=== PATIENT | male | born 1970 | race Caucasian/White ===

== ENCOUNTER 2021-11-29 01:08 | Outpatient (CLI) | payer OTHER, SELFPAY ==
--- NOTE | 2021-11-29 | DI.RAD_ITS ---
Exam(s) XR LUMBAR SPINE COMPLETE EXAM: XR LUMBAR SPINE COMPLETE CLINICAL HISTORY: S/P L5-S1 FUSION. TECHNIQUE: 2D digital imaging was performed of the lumbar spine. Five images were obtained. AP, la teral, right oblique, left oblique and L5-S1 spot views were obtained. COMPARISON: No exams were available for comparison FINDINGS: BONES: No fracture or destructive lesion. Vertebral bodies are unremarkable. No facet hypertrophy soham ntified. Endplate osteophytes are seen at multiple levels of the lumbar spine. DISKS: Intervertebral disc spaces are maintained. There are postsurgical changes at L5-S1. ALIGNMENT: Lumbar spinal alignment is within normal limits. No spondylolysis or spondylolisthesis. SOFT TISSUE: Normal. IMPRESSION: 1. Mild degenerative changes in the lumbar spine. 2. Postsurgical changes at L5-S1. DATA REPOSITORY: RADIATION DOSE DELIVERED:
== END 2021-11-29 01:28 ==
DX: Z98.1 Arthrodesis status (principal); M51.36 Other intervertebral disc degeneration, lumbar region
CPT/HCPCS: 72110

== ENCOUNTER 2022-03-07 02:22 | Outpatient (CLI) | payer OTHER, SELFPAY | END 2022-03-07 02:23 | disposition home or self-care (01) | LOC: LBO 02:22 | PROVIDERS: PCP Nurse Practitioner; Visit Provider Nurse Practitioner ==

== ENCOUNTER → 2022-04-11 01:29 | Outpatient (CLI) | payer OTHER, SELFPAY ==
--- NOTE | 2022-04-11 | DI.MRI_ITS ---
Exam(s) MR LUMBAR SPINE WO EXAM: MR LUMBAR SPINE WO CLINICAL HISTORY: H/O L5-S1 FUSION 08/08/21, M54.50, M54,16, M54.31. TECHNIQUE: Multiplanar multisequence MRI of the Lumbar spine was performed. COMPARISON: CR XR LUMBAR SPINE COMPLETE from 11/29/2021 CR XR LUMBAR SPINE COMPLETE from 04/11/2022 FINDINGS: The examination is limited due to patient motion artifact. Bones: The last intervertebral disc space is designated the L5/S1 level for the numbering purpose of this examination. The vertebral body heights are well maintained. Alignment is satisfactory. The si gnal characteristics are unremarkable. Postsurgical changes at L5-S1. Cord: The conus tip ends at the T12 level. It is of normal size and signal intensity. T12-L1: No disc herniations or bulges are present. No central spinal canal or neural foraminal stenos is. L1-2: No disc herniations or bulges are present. No central spinal canal or neural foraminal stenosis . L2-3: No disc herniations or bulges are present. No central spinal canal or neural foraminal stenosis . L3-4: There is a diffuse disc bulge. Degenerative changes of the facets are present. The findings r esult in moderate central spinal canal stenosis. Moderately severe bilateral neural foraminal stenos is is present. L4-5: There is a diffuse disc bulge. Degenerative changes of the facets are present. This causes mo derately severe central spinal canal stenosis. There is marked bilateral neural foraminal stenosis. L5-S1: No disc herniations or bulges are present. No central spinal canal or neural foraminal stenosi s.There is limited visualization of the right neural foramen due to hardware artifact. Soft tissues: The visualized SI joints and sacrum are well maintained. There is mild fatty atrophy of the right paraspinous muscles posterior to the lower lumbar and sacrum. IMPRESSION: 1. Postsurgical changes at L5-S1. 2. Diffuse disc bulge and degenerative changes at L4-L5 which causes moderately severe central spinal canal stenosis and marked bilateral neural foraminal stenosis. 3. Degenerative changes at L3-L4 resulting in moderate central spinal canal and moderately severe abebe ateral neural foraminal stenosis. DATA REPOSITORY:
--- NOTE | 2022-04-11 09:00 | DI.RAD_ITS ---
Exam(s) XR LUMBAR SPINE COMPLETE EXAM: XR LUMBAR SPINE COMPLETE CLINICAL HISTORY: LBP, H/O L5-S1 FUSION ON 08/08/21. TECHNIQUE: 2D digital imaging was performed of the lumbar spine. Five images were obtained. AP, la teral, flexion and extension views were obtained. COMPARISON: CR XR LUMBAR SPINE COMPLETE from 11/29/2021 FINDINGS: BONES: No fracture or destructive lesion. There are endplate osteophytes at all levels of the lumbar spine. No facet hypertrophy identified. Postsurgical changes are seen at L5-S1. DISKS: There is disc space narrowing at L4-L5. ALIGNMENT: Lumbar spinal alignment is within normal limits. No significant subluxations are seen wit h flexion or extension. No spondylolysis or spondylolisthesis. SOFT TISSUE: Normal. IMPRESSION: Degenerative and postsurgical changes in the lumbar spine. DATA REPOSITORY: RADIATION DOSE DELIVERED:
== END ==
PROVIDERS: PCP Nurse Practitioner; Visit Provider Orthopaedic Surgery Orthopaedic Surgery of the Spine
DX: M54.59 Other low back pain (principal); M51.36 Other intervertebral disc degeneration, lumbar region; Z98.1 Arthrodesis status; M48.061 Spinal stenosis, lumbar region without neurogenic claudication
CPT/HCPCS: 72110; 72148

== ENCOUNTER 2022-05-15 10:43 | Outpatient (REF) | payer OTHER, SELFPAY ==
[2022-05-15 10:53] LABS: Source Nasal/Nares
[2022-05-15 21:47] LABS: COVID-19 PCR Negative (Negative)
== END 2022-05-15 10:44 | disposition home or self-care (01) ==
LOC: LBN 10:43
PROVIDERS: PCP Nurse Practitioner; Visit Provider Nurse Practitioner
DX: Z20.822 Contact with and (suspected) exposure to COVID-19 (principal); Z01.818 Encounter for other preprocedural examination
CPT/HCPCS: 87635

== ENCOUNTER 2022-10-27 13:24 | Outpatient (REF) | payer OTHER, SELFPAY ==
[2022-10-27 20:53] LABS: Abs Immature Grans 0.01 10^3/uL (0.0-0.06); Absolute Basophil Count 0.04 10^3/uL (0.0-0.2); Absolute Eosinophil Count 0.14 10^3/uL (0.0-0.7); Absolute Lymphocyte Count 1.13 10^3/uL (1.2-3.4); Absolute Monocyte Count 0.46 10^3/uL (0.1-0.8); Absolute Neutrophil Count 2.32 10^3/uL (1.2-6.7); Eosinophils % 3.4; HCT 40.4 % (40.0-50.0); HGB 13.6 g/dL (13.5-17.5); Immature Grans % 0.2; Lymphocytes % 27.6; MCH 31.6 pg (27.0-33.0); MCHC 33.7 % (32.0-36.0); MCV 94 fL (80-95); MPV 10.9 fL (8.0-11.0); Monocytes % 11.2; Neutrophils % 56.6; Platelet Count 211 10^3/uL (130-400); RDW 13.1 % (11.8-14.1); RDW-SD 44.4 fL
[2022-10-27 21:05] LABS: ALT 42 U/L (16-63); AST 36 U/L (15-37); Alkaline Phosphatase 75 U/L (46-116); Anion Gap 5.7 mmol/L (3-11); BUN 13 mg/dL (7-18); CO2 30.3 mmol/L (21.0-32.0); CREATININE 0.9 mg/dL (0.70-1.30); Calcium 9.4 mg/dL (8.5-10.1); Calculated LDL 87 mg/dL (<100); Chloride 104 mmol/L (98-107); Cholesterol 176 mg/dL (<200); Estimated GFR 104.05 (mL/min/1.73m2); Glucose 87 mg/dL (74-106); HDL Cholesterol 81 mg/dL (40-60); Potassium 4.5 mmol/L (3.5-5.1); Sodium 140 mmol/L (136-145); TSH (W/Ref FT4) 1.71 uIU/mL (0.36-3.74); Total Protein 7.3 g/dL (6.4-8.2); Triglyceride 41 mg/dL (<150)
[2022-10-27 21:21] LABS: Hemoglobin A1C 5.2 % (<5.7)
== END 2022-10-27 13:25 | disposition home or self-care (01) ==
LOC: LBN 13:24
PROVIDERS: PCP Nurse Practitioner Family; Visit Provider Nurse Practitioner Family
DX: Z00.00 Encounter for general adult medical examination without abnormal findings (principal)
CPT/HCPCS: 80053; 80061; 83036; 84443; 85025

== ENCOUNTER 2022-11-18 14:41 | Outpatient (CLI) | payer OTHER, SELFPAY ==
--- NOTE | 2022-11-18 14:30 | DI.RAD_ITS ---
Exam(s) XR KNEE LT 4V AP,LAT,RIMMA,PAT EXAM: XR KNEE LT 4V AP,LAT,RIMMA,PAT CLINICAL HISTORY: left knee pain. TECHNIQUE: 2D digital imaging was performed. COMPARISON: No exams were available for comparison FINDINGS: Four views: There is the medial hemiarthroplasty as well as evidence of prior ACL surgery. Components of the med ial hemiarthroplasty appear to be in satisfactory position alignment with no fracture or loosening. There are minimal degenerative changes. The height of the lateral compartment is maintained. Howeve r, there are at least 2 intra-articular calcified bodies as seen on the frontal and tunnel view. 1 o f these is located laterally measuring 6 x 3 millimeters and the other measures approximately 5 x 5 m illimeters. These appear to be located in the lateral compartment and intercondylar notch, respectiv crystal. IMPRESSION: Previous ACL surgery and medial hemiarthroplasty. Loose intra-articular bodies as described above. Joint effusion noted. DATA REPOSITORY: RADIATION DOSE DELIVERED:
== END 2022-11-18 14:42 | disposition home or self-care (01) ==
LOC: DIORS 14:42
PROVIDERS: PCP Nurse Practitioner Family; Referring Provider Nurse Practitioner Family; Visit Provider Student in an Organized Health Care Education/Training Program
DX: M25.562 Pain in left knee (principal); M23.42 Loose body in knee, left knee
CPT/HCPCS: 73564

== ENCOUNTER 2022-11-19 10:52 | Day surgery (SDC) | payer OTHER, SELFPAY ==
[2022-11-19] VITALS (9 sets, daily range): BP systolic 130–155; BP diastolic 82–89; PULSE 34–44; RESP 11–20; TEMP 36.3–36.7; O2SAT 99–100; BMI 27.1
--- NOTE | 2022-11-19 11:26 | W.ANESPRE ---
General Info Date of Service Date Performed: 11/19/22 Height: 5 ft 9 in Weight: 83.5 kg Body Mass Index (BMI): 27.1 Surgical Procedure: Operation Date: 11/19/22 12:55 Proposed Procedure Side Surgeon p Arthroscopic removal of loose body Left knee Left Archie Osborne MD Meds Allergies and Home Medications Allergies Allergy/AdvReac Type Severity Reaction Status Date / Time No Known Allergies Allergy Verified 11/18/22 14:35 Home Medication Medication Instructions Recorded sildenafil 50 mg tablet (Viagra) 50 mg PO DAILY PRN sexual activity 08/18/22 #15 tabs dextroamphetamine-amphetamine 10 10 mg PO BID #56 tabs 10/27/22 mg tablet (Adderall) Current Visit Medications: Current Medications Generic Name Dose Route Start Last Admin Trade Name Freq PRN Reason Stop Dose Admin Acetaminophen 1,000 mg 11/19/22 06:00 Acetaminophen 500 Mg Tab PO PREOP SHELBY Celecoxib 400 mg 11/19/22 06:00 Celecoxib 200 Mg Cap PO PREOP SHELBY PFSH Active Problems Active Problems: Problem Status Onset Code Loose body of left knee M23.42 Erectile dysfunction N52.9 Low back pain with right-sided sciatica M54.41 Adjustment disorder F43.20 Insomnia G47.00 ADD (attention deficit disorder) F98.8 Medical History Medical History Biceps tendonitis 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 Fracture of L4 vertebra Fracture of left ankle Fracture, scapula Hepatomegaly Infraspinatus tendonitis Intervertebral disc protrusion L2-L3, L3-L4, L4-L5, L5-S1 Iron deficiency anemia Low back pain s/p lumbar fusion L5 S1 July 2021 Osteoarthritis of left knee SLAP shoulder tear prominent labral w/ paralabral cyst Supraspinatus tendinitis Wear of cartilage of joint due to hemiarthroplasty Medical History Comments:: alfredo for sleep aide; t-3; avg 2x week Surgical History Surgical History H/O angioplasty coronary artery History of surgical removal of meniscus of knee repaired S/P ACL repair 2010 S/P anterior cruciate ligament surgery S/P left knee surgery osteochondral implants, CLARENCE left partial medial knee replacement S/P rotator cuff repair 2013 Status post labral repair of shoulder Tobacco Smoking/Tobacco Use Status: Former Tobacco Use Second hand exposure: Yes Alcohol Alcohol Intake: current Alcohol intake frequency: a few times a week Alcohol type: beer Substance Use Substance use: Never Substance use type: does not use Details: t-3; avg 2x week Vital Signs and Lab Results Vital Signs Most Recent Vital Signs in EMR: Most Recent Vital Signs Temp Pulse Resp BP Pulse Ox 36.7 C 44 L 20 131/87 99 11/19/22 11:04 11/19/22 11:04 11/19/22 11:04 11/19/22 11:04 11/19/22 11:04 Lab Results Blood Type / Crossmatch: No Data to Display Complete Blood Count: White Blood Count 4.10 10^3/uL (4.4-10.8) L 10/27/22 20:30 Red Blood Count 4.30 10^6/uL (4.36-5.78) L 10/27/22 20:30 Hemoglobin 13.6 g/dL (13.5-17.5) 10/27/22 20:30 Hematocrit 40.4 % (40.0-50.0) 10/27/22 20:30 Platelet Count 211 10^3/uL (130-400) 10/27/22 20:30 Complete Metabolic Panel: Sodium 140 mmol/L (136-145) 10/27/22 20:30 Potassium 4.5 mmol/L (3.5-5.1) 10/27/22 20:30 Chloride 104 mmol/L (98-107) 10/27/22 20:30 Carbon Dioxide 30.3 mmol/L (21.0-32.0) 10/27/22 20:30 BUN 13 mg/dL (7-18) 10/27/22 20:30 Creatinine 0.9 mg/dL (0.70-1.30) 10/27/22 20:30 Est GFR (CKD-EPI 2020) 104.05 (mL/min/1.73m2) 10/27/22 20:30 Calcium 9.4 mg/dL (8.5-10.1) 10/27/22 20:30 Albumin 4.0 g/dL (3.4-5.0) 10/27/22 20:30 Glucose 87 mg/dL (74-106) 10/27/22 20:30 Hemoglobin A1c 5.2 % (<5.7) 10/27/22 20:30 Liver Function Panel: Alanine Aminotransferase (ALT/SGPT) 42 U/L (16-63) 10/27/22 20:30 Aspartate Amino Transf (AST/SGOT) 36 U/L (15-37) 10/27/22 20:30 Coagulation Panel: No Data to Display Cardiac Panel: No Data to Display Arterial Blood Gas: No Data to Display Venous Blood Gas: No Data to Display Pancreas Panel: No Data to Display Thyroid Panel: Thyroid Stimulating Hormone (TSH) 1.71 uIU/mL (0.36-3.74) 10/27/22 20:30 Infectious Disease: No Data to Display Blood Cultures: No Data to Display Toxicology Panel: No Data to Display Anesthesia Assessment and Plan Anesthesia History Personal History: No History of Anesthesia Complications Family History: No Family History of Anesthesia Complications Exercise Tolerance Exercise Tolerance: Metabolic Equivalents>4 Pertinent Negatives Pertinent Negatives: No Symptoms of GERD, No Major Cardiovascular Symptoms or Complaints and No Major Pulmonary Symptoms or Complaints Cardiac & Pulmonary Exam Cardiac Exam: Normal S1/S2 Heart Sounds Pulmonary Exam: Clear Bilateral Breath Sounds Implantable Cardiac Device Does patient have a Pacemaker or an ICD?: No Airway Exam Known Difficult Airway: No Mallampati Class: 1 Mouth Opening: Normal (> 3cm) Thyromental Distance: Greater than 3 cm Facial Hair: Full Melo Neck Range of Motion: Full ROM Neck Circumference: Normal Teeth Condition: Normal Dentition ASA Classification ASA Score: ASA 2 Emergency Case?: No NPO Status NPO Status: NPO Clears >2 hours, Solids >8 hours Anesthesia Plan Resuscitation Status: Full Code Anesthesia Technique: General Anesthesia Airway Planned: LMA Monitors Used: Standard Monitors
[2022-11-19] MEDS: Acetaminophen 500 MG TAB 1000 MG PO (11:35)
[2022-11-19] MEDS: Celecoxib 200 MG CAP 400 MG PO (11:35)
[2022-11-19] MEDS: Lactated Ringers 1,000 ML 80 ML IV (11:41)
[2022-11-19] MEDS: ceFAZolin 2 GM/50 ML BAG IVPB (12:32)
--- NOTE | 2022-11-19 13:04 | W.PM.DSUDISC ---
Date of service: 11/19/22 Time of Service: 13:04 Discharge Plan Disposition Patient Disposition: Home Condition: Good Discharge Details Attending Provider: Archie Osborne Primary Care Provider: Rajni Méndez Home Meds and New Rx's Prescriptions: New acetaminophen 500 mg tablet 1,000 mg PO TID Qty: 90 0RF hydrocodone-acetaminophen 5-325 mg tablet 1 tab PO Q6H PRN (Reason: pain) Qty: 6 0RF ibuprofen 600 mg tablet 600 mg PO TID PRN (Reason: pain) Qty: 90 0RF Continued dextroamphetamine-amphetamine [Adderall] 10 mg tablet 10 mg PO BID MDD 20 Qty: 56 0RF sildenafil [Viagra] 50 mg tablet 50 mg PO DAILY PRN (Reason: sexual activity) Qty: 15 2RF Rx Instructions: administer 30 minutes to 4 hours before activity Discharge Instructions Stand Alone Forms: Dylon Knee Arthroscopy Equipment/Supplies: Partial Weight Bearing Crutches Activity:: Activity as Tolerated Remove Dressings/Wound Care:: 72 hours Shower/Bathe:: 72 hours Diet:: As Tolerated Discharge Orders Discharge Orders: Discharge Order (Routine); Ordered 11/19/22 Ordered By: Ayush Cedillo
[2022-11-19] MEDS: Bupivacaine 0.5% Pres-Free 30 ML VIAL (13:44)
[2022-11-19] MEDS: fentaNYL 100 MCG/2 ML VIAL IVP (14:25)
--- NOTE | 2022-11-19 15:01 | W.ANESPOSTOP ---
Postoperative Evaluation Date, Time and Location Date Performed: 11/19/22 Time Performed: 15:01 Patient Location: PACU Vital Signs Most Recent Imported Vital Signs: Most Recent Vital Signs Temp Pulse Resp BP Pulse Ox 36.6 C 34 L 11 L 133/82 100 11/19/22 14:40 11/19/22 14:40 11/19/22 14:40 11/19/22 14:40 11/19/22 14:40 Pain Score Most Recent Pain Score: Most Recent Pain Score Pain Level 3 11/19/22 14:40 Assessment Mental Status: Awake (Alert & Oriented to Patient Baseline) Airway and Respiratory Function: Patent airway with normal (patient baseline) respiratory exam Cardiovascular Function: Hemodynamically Stable Hydration Status: Adequately Hydrated Nausea & Vomiting: No Nausea or Vomiting Pain: Pain is tolerable per patient Peripheral Nerve Block: Patient did not receive a nerve block
--- NOTE | 2022-11-19 16:31 | W.PM.OP ---
Date of service: 11/19/22 Time of Service: 13:45 Operative Note Operative Note DATE OF PROCEDURE: 11/19/22 PRE-OP DIAGNOSIS: Left Knee Synovitis and Loose Bodies POST-OP DIAGNOSIS: same PROCEDURE: Arthroscopic Synovectomy and Removal of Loose Body - Left Knee SURGEON: Archie Osborne ANESTHESIA TYPE: General LMA/ETT Refer to Anesthesia Record ESTIMATED BLOOD LOSS: 0 PATHOLOGY: none sent COMPLICATIONS: None Patient was transported to: PACU Patient's condition: stable Indications: I have seen Jan in clinic for symptoms of a loose body with some synovitis. This was confirmed based on x-ray and exam findings. Nonoperative measures were exhausted but disability and pain persisted. I discussed knee arthroscopy with the patient. I reviewed the risks of the procedure to include, but not limited to, bleeding, infection, pain, stiffness, damage to nerves or vessels, recurrence, blood clot. Despite these risks, the patient elected to proceed. Findings: A diagnostic arthroscopy was performed with the following findings: Suprapatellar Pouch: Moderate inflammatory and chronic synovitis, No loose bodies Medial Compartment: Intact unicompartmental arthroplasty without signs of loosening, , No loose bodies Notch: ACL and PCL were intact, rounded loose body adjacent to the PCL and ACL Lateral Compartment: Partial, complex tearing of the root, Focal areas of Grade III chondromalacia with large fissures, 3 small fragments identified in the posterior aspect of the knee Patellofemoral Compartment: Grade II/III chondromalacia and some areas of Grade IV chondromalacia of the trochlea, No apparent patellar maltracking Procedure Description: Jan was greeted in the preoperative holding area where the correct side was identified and marked. The consent was reviewed with the patient and signed. The history and physical was updated. All questions were answered. Jan was taken back to the operating room. The patient was placed into the supine position on the operating room table. All bony prominences were well padded. Prophylactic antibiotics in the form of Cefazolin were administered. The left leg was then prepped with Chloraprep and draped in a standard fashion with stockinette and extremity drape. A timeout to confirm correct identity, side and site, procedure, allergies, anesthesia, and medical concerns was performed. The leg was placed into a pneumatic leg tabor, [id number]. A standard lateral portal was made at the lateral border of the patella tendon in line with the inferior pole of the patella, soft spot. The skin and deep tissue was incised sharply and the blunt trochar was inserted atraumatically. A diagnostic arthroscopy was performed and the findings are listed above. The suprapatellar pouch had chronic synovitis and some inflammatory changes. The patellofemoral articulation showed Grade II/III chondromalacia of the distal and lateral aspect of the patella. There was good tracking. The trochlea had exposed bone centrally, Grade IV chondromalacia. The lateral gutter had no loose bodies and the medial gutter had no loose bodies. The knee was brought into some valgus stress in extension to open the medial compartment. A medial portal was made, localized by a spinal needle. The portal was created with an #11 blade through skin and capsule under direct visualization avoiding any meniscal injury. A probe was then inserted into the medial compartment. There was a unicompartmental arthroplasty in position. There is no sign of loosening. There was some overgrowth of the bone surrounding the medial aspect of the medial femoral component. There was some chronic synovitis and scarring around this component but nothing which was impinging. The notch was then inspected which showed an intact ACL and an intact PCL. A rounded loose body was seen loosely attached to the PCL interposed between the ACL and the PCL. Using a pituitary rongeur this was removed. The leg was then brought into a figure of 4 position. The lateral compartment was fully inspected with the arthroscope and a probe. The chondral surface of the lateral femur showed area of grade I chondromalacia with some slight fissuring resulting in some grade 3. The chondral surface of the lateral tibia showed some areas of fissuring representing grade III chondromalacia although overall cartilage was intact. The lateral meniscus had some fraying with a small displaced fragment at the level of the root posteriorly. After evaluation, the meniscus was debrided down to a stable base using a series of biters and arthroscopic tenisha. It was probed afterwards to confirm that the tear had been removed and the meniscus was stable. There is no loose body identified within the lateral compartment as expected. Therefore I took the scope into the medial portal and advanced it through the notch between the wall of the lateral femur and the ACL. This allowed me to inspect the posterior compartment of the knee. In the posterior compartment there were 3 loose bodies which appear to be cartilaginous in nature. On the scope and advancing the shaver I was able to visualize removal of these loose bodies through the shaver itself. I then made a superior portal in the superolateral aspect of the knee. I then used a shaver to clear out the lateral gutter which had significant amount of synovitis and inflammation. This abundant amount of synovitis was seen between the patella and in the lateral soft tissues. This was debrided down until the bulk was removed. I also advanced the camera into the popliteal hiatus, looking for any loose bodies. None were found in this area. The arthroscope was brought back into the suprapatellar pouch and the leg was in full extension. The knee was thoroughly irrigated with the arthroscopic fluid on high flow and pressure. Once again, no other loose bodies were identified. Prior to completing the case I then moved the scope back into the anterior aspect of the knee focusing on the anterior lateral aspect but once again saw no other loose bodies. Inflow was stopped and excess fluid was removed. The wounds were closed with 4-0 Nylon. They were dressed with Xeroform, 4x4 gauze, ABD pad, Kerlix and an RED wrap. A cryo-cuff was applied. The patient tolerated the procedure well and was returned to the Same Day Surgery area in a stable condition suffering no known complication.
== END 2022-11-19 16:05 | disposition home or self-care (01) ==
PROVIDERS: PCP Nurse Practitioner Family; Visit Provider Student in an Organized Health Care Education/Training Program
PROC: (CPT 29870; principal; 2022-11-19 12:45)
DX: M65.862 Other synovitis and tenosynovitis, left lower leg (principal); M94.262 Chondromalacia, left knee; M23.262 Derangement of other lateral meniscus due to old tear or injury, left knee; M23.42 Loose body in knee, left knee
CPT/HCPCS: 29876; 29881; J0690; J1100; J1885; J2250; J2405; J2704; J3010

== ENCOUNTER → 2023-07-24 00:52 | Outpatient (CLI) | payer OTHER, SELFPAY ==
--- NOTE | 2023-07-24 | DI.MRI_ITS ---
Exam(s) MR LUMBAR SPINE WO EXAM: MR LUMBAR SPINE WO CLINICAL HISTORY: LOW BACK PAIN, M54.50, S/P LUMBAR FUSION, Z98.1, LUMBAR SPONDYLOSIS, M47.81 TECHNIQUE: Multiplanar multisequence MRI of the Lumbar Spine was performed. CONTRAST MATERIAL: IV Contrast: mL of Dotarem contrast administered. COMPARISON: MR MR LUMBAR SPINE WO from 04/11/2022 FINDINGS: No recent post surgical plain films are available. Metallic posterior fusion hardware is now seen from L4 through S1. There is significant artifact at these levels. No significant central canal stenosis. Neural foramen difficult to evaluate due to me tallic artifact. Mild central canal stenosis at L 3 4 secondary to disc bulging and ligamentous hypertrophy. Severe bilateral neural foraminal narrowing present. Mild disc bulging and facet degenerative changes well as ligamentous hypertrophy noted at L2-3. Ther e is moderate to severe bilateral neural foraminal narrowing. T12-L1 and L1-2 levels are unremarkable. IMPRESSION: Patient is now status post fusion hardware at L4-5 since the previous exam. No significant change in bilateral neural foraminal narrowing at L2-3 and L3-4. Mild cyst insert can al stenosis at L3-4. No disc herniation. DATA REPOSITORY:
== END ==
PROVIDERS: PCP Nurse Practitioner Family; Visit Provider Physician Assistant Medical
DX: M54.50 Low back pain, unspecified (principal); Z98.1 Arthrodesis status; M47.816 Spondylosis without myelopathy or radiculopathy, lumbar region
CPT/HCPCS: 72148

== ENCOUNTER 2024-02-16 05:18 | Outpatient (CLI) | payer OTHER, SELFPAY ==
[2024-02-16 09:55] LABS: HCT 41.9 % (40.0-50.0); HGB 14.3 g/dL (13.5-17.5); MCH 31.7 pg (27.0-33.0); MCHC 34.1 % (32.0-36.0); MCV 93 fL (80-95); MPV 8.9 fL (8.0-11.0); Platelet Count 249 10^3/uL (130-400); RBC 4.51 10^6/uL (4.36-5.78); RDW 12.5 % (11.8-14.1); RDW-SD 42.9 fL; WBC 5.35 10^3/uL (4.4-10.8)
[2024-02-16 10:32] LABS: ALT 47 U/L (16-63); AST 52 U/L (15-37); Albumin 4.2 g/dL (3.4-5.0); Alkaline Phosphatase 72 U/L (46-116); Anion Gap 8.4 mmol/L (3-11); BUN 16 mg/dL (7-18); Bilirubin, Total 0.7 mg/dL (0.2-1.0); CO2 28.6 mmol/L (21.0-32.0); CREATININE 0.9 mg/dL (0.70-1.30); Calcium 9.2 mg/dL (8.5-10.1); Calculated LDL 94 mg/dL (<100); Chloride 104 mmol/L (98-107); Cholesterol 181 mg/dL (<200); Glucose 88 mg/dL (74-106); HDL Cholesterol 82 mg/dL (40-60); Potassium 4.2 mmol/L (3.5-5.1); Sodium 141 mmol/L (136-145); Total Protein 7.4 g/dL (6.4-8.2); Triglyceride 26 mg/dL (<150)
== END 2024-02-16 05:19 | disposition home or self-care (01) ==
LOC: LBO 05:18
PROVIDERS: PCP Nurse Practitioner Family; Visit Provider Nurse Practitioner Family
DX: Z00.00 Encounter for general adult medical examination without abnormal findings (principal); F98.8 Other specified behavioral and emotional disorders with onset usually occurring in childhood and adolescence; N52.9 Male erectile dysfunction, unspecified
CPT/HCPCS: 36415; 80053; 80061; 85027

== ENCOUNTER 2024-07-14 10:00 | Outpatient (CLI) | payer OTHER, SELFPAY ==
[2024-07-14 10:18] LABS: Abs Immature Grans 0.02 10^3/uL (0.0-0.06); Absolute Basophil Count 0.05 10^3/uL (0.0-0.2); Absolute Eosinophil Count 0.15 10^3/uL (0.0-0.7); Absolute Lymphocyte Count 1.03 10^3/uL (1.2-3.4); Absolute Monocyte Count 0.44 10^3/uL (0.1-0.8); Absolute Neutrophil Count 4.06 10^3/uL (1.2-6.7); Basophils % 0.9 %; Eosinophils % 2.6 %; HCT 43.5 % (40.0-50.0); HGB 14.3 g/dL (13.5-17.5); Immature Grans % 0.3 %; Lymphocytes % 17.9 %; MCH 31.6 pg (27.0-33.0); MCHC 32.9 % (32.0-36.0); MCV 96 fL (80-95); MPV 8.7 fL (8.0-11.0); Monocytes % 7.7 %; Neutrophils % 70.6 %; Platelet Count 235 10^3/uL (130-400); RBC 4.52 10^6/uL (4.36-5.78); RDW 12.4 % (11.8-14.1); RDW-SD 44.2 fL; WBC 5.75 10^3/uL (4.4-10.8)
[2024-07-14 10:27] LABS: Prothrombin Time 10.2 sec (9.1-11.1)
[2024-07-14 10:47] LABS: Anion Gap 7.5 mmol/L (3-11); BUN 14 mg/dL (7-18); CO2 29.5 mmol/L (21.0-32.0); CREATININE 0.9 mg/dL (0.70-1.30); Calcium 9.2 mg/dL (8.5-10.1); Chloride 104 mmol/L (98-107); Estimated GFR 102.76 (mL/min/1.73m2); Glucose 69 mg/dL (74-106); Potassium 4.7 mmol/L (3.5-5.1); Sodium 141 mmol/L (136-145)
== END 2024-07-14 10:01 | disposition home or self-care (01) ==
LOC: LBO 10:00
PROVIDERS: PCP Nurse Practitioner Family; Visit Provider Internal Medicine
DX: I25.119 Atherosclerotic heart disease of native coronary artery with unspecified angina pectoris (principal)
CPT/HCPCS: 36415; 80048; 85025; 85610

== ENCOUNTER 2024-10-10 01:39 | Outpatient (CLI) | payer OTHER, SELFPAY ==
--- NOTE | 2024-10-10 05:51 | ETT_ITS ---
APPROVED REPORT Exam: Exercise Treadmill Patient Location: Out-Patient Room/Bed: Stress Nurse: Ethel Castro RN Ordering Provider:MARYBEL MORENO, Contact Number: [phone] BMI: 27.61 Baseline Rhythm: Sinus Bradycardia Indications: CAD; ADD Medical History Medical History: CAD, ADD, adjustment disorder Cardiac Medications: aspirin, stratera, rosuvastatin, sildenafil Allergies: No known drug allergies Cardiac Risk Factors: family hx, CVD Previous Cardiac Procedures: cath 08/08/24 Pretest Chest Pain Characteristics: No chest pain Exercise History: Physically active Physical Disabilities: none Lung Sounds: Clear to auscultation Heart Sounds: Regular Stress Test Details Test: Exercise stress testing was performed using a Alden protocol. Rest Stress HR Resting HR Supine: 53 bpm Max Heart Rate (APMHR): 168 bpm Resting HR Standin bpm Target HR (85% APMHR): 143 bpm Max HR Achieved: 136 bpm % of APMHR: 81 Recovery HR: 68 bpm HR response to stress: Normal HR response to stress BP Resting BP Supine: 160/90 mmHg Resting BP Standin/80 mmHg Max BP: 220/90 mmHg Recovery BP: 110/50 mmHg BP response to stress: Normal blood pressure response to stress. ECG Resting ECG: Sinus Bradycardia Ectopy: none Comment: peaked T wave Stress ECG: Sinus Tachycardia ST Change: No significant ST segment changes noted Arrhythmia: occasional PVCs Comment: peaked T wave Recovery ECG: Sinus Rhythm Recovery ST Change: No significant ST segment changes noted Recovery Arrhythmia: occasional PVCs, rare PAC Comment: ? rate related U wave vs. nonconducted PACs; peaked T wave Clinical Reason for Termination: artifact; unable to accurately read EKG Stress Symptoms: none Exercise duration: 14 min04 sec Highest Stage Reached: Stage 5: 5.0 mph at 18% grade. Exercise capacity: 14.86 METs Angina Score: None Aleman Treadmill Score: 10.1 Rate Pressure Product: 34802 Stress ECG Conclusion 1. Resting electrocardiogram showed voltage for left ventricular hypertrophy 2. Patient exercised on the Alden protocol and completed a workload of 15 METS, excellent exercise ca pacity 3. Mildly hypertensive blood pressure response to exercise. Normal heart rate response to exercise. The patient achieved 81% of predicted heart rate for age 6. At that heart rate and workload achieved, there were no symptoms to suggest angina, no electrocard iographic findings of myocardial ischemia 5. There were no significant dysrhythmias Aleman Treadmill Score is 10.1 which is Low risk. Stress Test Summary STAGE Time (mins) Speed (mph) Grade (%) HR BP SpO2 SYMPTOMS METS Supine 53 160/90 99 Standing 55 150/80 1 3 1.7 10 77 158/82 4.5 2 6 2.5 12 95 156/78 7 3 9 3.4 14 113 162/84 94 10 4 12 4.2 16 126 180/80 95 13 5 15 5.0 18 136 15 1 min recovery 111 190/92 92 3 min recovery 72 220/90 99 6 min recovery 63 150/86 9 min recovery 66 110/50 Test was ended by nursing staff before target heart rate reached due to inability to accurately read EKG due to artifact. Patient asymptomatic and left ambulatory, in no acute distress.
== END 2024-10-10 01:59 ==
PROVIDERS: PCP Nurse Practitioner Family; Visit Provider Nurse Practitioner Family
DX: F98.8 Other specified behavioral and emotional disorders with onset usually occurring in childhood and adolescence (principal); I25.10 Atherosclerotic heart disease of native coronary artery without angina pectoris
CPT/HCPCS: 93017

== ENCOUNTER 2025-01-17 06:11 | Day surgery (SDC) | payer OTHER, SELFPAY ==
[2025-01-17 06:22] VITALS: BP 121/83; PULSE 40; RESP 16; TEMP 36.4; O2SAT 100
[2025-01-17] MEDS: Lactated Ringers 1,000 ML 80 ML IV (06:38)
--- NOTE | 2025-01-17 07:05 | W.ANESPRE ---
General Info Date of Service Date Performed: 01/17/25 Height: 5 ft 9 in Weight: 84.5 kg Body Mass Index (BMI): 27.5 Surgical Procedure: Operation Date: 01/17/25 07:35 Proposed Procedure Side Surgeon p Colonoscopy German Donato MD Actual Procedure Side Surgeon p Colonoscopy Not Applicable German Donato MD Pre-Op Diagnosis Post-Op Diagnosis screening colonoscopy Meds Allergies and Home Medications Allergies Allergy/AdvReac Type Severity Reaction Status Date / Time No Known Allergies Allergy Verified 01/17/25 06:16 Home Medication ?Medication ?Instructions ?Recorded aspirin 81 mg tablet,delayed 81 mg PO DAILY #90 tabs 10/04/24 release (Adult Low Dose Aspirin) rosuvastatin 20 mg tablet 20 mg PO DAILY #90 tabs 10/04/24 mupirocin 2 % topical ointment 1 applic topical TID #22 grams 10/11/24 triamcinolone acetonide 0.5 % 1 applic topical BID #30 grams 10/27/24 topical cream betamethasone dipropionate 0.05 % 1 applic topical DAILY PRN skin 11/28/24 topical cream irritation #45 grams dextroamphetamine-amphetamine 10 10 mg PO BID #56 tabs 12/02/24 mg tablet (Adderall) sildenafil 50 mg tablet 50 mg PO DAILY #30 tabs 12/02/24 bisacodyl 5 mg tablet,delayed 5 mg PO ONCE #4 tabs 01/12/25 release (Dulcolax (bisacodyl)) polyethylene glycol 3350 17 17 g PO ONCE #238 grams 01/12/25 gram/dose oral powder Current Visit Medications: Current Medications Generic Name Dose Route Start Last Admin Trade Name Romq PRN Reason Stop Dose Admin Ringer's Solution 1,000 mls @ 80 mls/hr 01/17/25 06:00 01/17/25 06:38 IV 01/17/25 23:59 80 mls/hr INFUSION SHELBY Administration IV Miscellaneous Supplies 1 each 01/17/25 06:00 Iv Access IV 01/17/25 23:59 DIRECTED SHELBY Sodium Chloride 0 ml 01/17/25 06:00 Normal Saline Flush 10 Ml Syr IV 01/17/25 23:59 PRN PRN Sodium Chloride 0 ml 01/17/25 06:00 Normal Saline 10 Ml Vial IJ 01/17/25 23:59 DIRECTED PRN Sterile Water 0 ml 01/17/25 06:00 Water,Injection,Sterile 10 Ml Vial IJ 01/17/25 23:59 DIRECTED PRN PFSH Active Problems Active Problems: Problem Status Onset Code Rash Acute R21 Coronary artery disease Chronic I25.10 Erectile dysfunction Acute N52.9 Low back pain with right-sided sciatica Acute M54.41 Adjustment disorder Chronic F43.20 Insomnia Acute G47.00 ADD (attention deficit disorder) Acute F98.8 Medical History Medical History (Updated 10/27/24 @ 08:21 by Rajni Méndez NP) Family history of coronary artery disease Synovitis of left knee Infraspinatus tendonitis Supraspinatus tendinitis SLAP shoulder tear prominent labral w/ paralabral cyst Intervertebral disc protrusion L2-L3, L3-L4, L4-L5, L5-S1 Wear of cartilage of joint due to hemiarthroplasty Loose body of left knee Fracture of left ankle Fracture, scapula Fracture of L4 vertebra Iron deficiency anemia Osteoarthritis of left knee Biceps tendonitis 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 [place] this was in [place]. He doesn't believe he had an angioplasty, he believes it was an error during his cardiac workup. ? 2015 approx. S/P left knee surgery osteochondral implants, CLARENCE left partial medial knee replacement Status post labral repair of shoulder History of surgical removal of meniscus of knee repaired S/P rotator cuff repair 2012 S/P ACL repair 2010 Tobacco Smoking/Tobacco Use Status: Former Tobacco Use Smokeless tobacco user: chewing tobacco Second hand exposure: Yes Alcohol Alcohol Intake: current Alcohol intake frequency: a few times a month Alcohol type: beer and wine Substance Use Substance use: Occasionally Substance use type: marijuana Details: t-4 days edible. Vital Signs and Lab Results Vital Signs Most Recent Vital Signs in EMR: Most Recent Vital Signs Temp Pulse Resp BP Pulse Ox 36.4 C L 40 L 16 121/83 100 01/17/25 06:22 01/17/25 06:22 01/17/25 06:22 01/17/25 06:22 01/17/25 06:22 Lab Results Blood Type / Crossmatch: No Data to Display Complete Blood Count: No Data to Display Complete Metabolic Panel: No Data to Display Liver Function Panel: No Data to Display Coagulation Panel: No Data to Display Cardiac Panel: No Data to Display Arterial Blood Gas: No Data to Display Venous Blood Gas: No Data to Display Pancreas Panel: No Data to Display Thyroid Panel: No Data to Display Infectious Disease: No Data to Display Blood Cultures: No Data to Display Toxicology Panel: No Data to Display Imaging and Studies Imaging and Studies Study information below may be from another EMR and interpreted by another provider. Please see original notes in EMR for more complete details. Stress Test Summary: 10/16: no ischemia Anesthesia Assessment and Plan Anesthesia History Personal History: No History of Anesthesia Complications Family History: No Family History of Anesthesia Complications Exercise Tolerance Exercise Tolerance: Metabolic Equivalents>4 Pertinent Negatives Pertinent Negatives: No Symptoms of GERD Cardiac & Pulmonary Exam Cardiac Exam: Normal S1/S2 Heart Sounds Pulmonary Exam: Clear Bilateral Breath Sounds Implantable Cardiac Device Does patient have a Pacemaker or an ICD?: No Airway Exam Known Difficult Airway: No Mallampati Class: 1 Mouth Opening: Normal (> 3cm) Thyromental Distance: Greater than 3 cm Neck Range of Motion: Full ROM Neck Circumference: Normal Teeth Condition: Normal Dentition ASA Classification ASA Score: ASA 2 Emergency Case?: No NPO Status NPO Status: NPO Clears >2 hours, Solids >8 hours Anesthesia Plan Resuscitation Status: Full Code Anesthesia Technique: General Anesthesia Airway Planned: Natural Airway Monitors Used: Standard Monitors
[2025-01-17 07:12] VITALS: BMI 27.5
--- NOTE | 2025-01-17 08:00 | BOWEL_PTH ---
PATIENT: Archie Mensah LOC: [facility] U#:[id number] AGE/SX: 54/M ROOM: RE01/17/[address]: German Donato : 1970 BED: DIS: 01/17/2025 SPEC #: [id number] RECD: 01/17/25 12:55 STATUS: NANCIE REJoaquim #: [id number] MARGARITA: 01/17/25 08:[address]: German Donato DEPT: Surgical Specimen RECD BY: [place] Thakur ENTERED: 01/17/25 12:57 SP TYPE: Bowel OTHR DR: Rajni Méndez, INFORMATION CLERK [place] Tissues: 1 - BIOPSY BOWEL 2 - BIOPSY BOWEL Procedures: GROSS AND MICRO LEVEL 4 Comments: [id number]
[2025-01-17 08:16] VITALS: BP 102/73; PULSE 48; RESP 16; TEMP 36.4; O2SAT 99
--- NOTE | 2025-01-17 08:43 | W.COLOREPORT ---
Date of service: 01/17/25 Time of Service: 08:43 Colonoscopy Report Procedure Description: PROCEDURES PERFORMED: 1. Colonoscopy with hot snare polypectomy 2. Cold forceps x1 PREOPERATIVE DIAGNOSIS: Screening colonoscopy POSTOPERATIVE DIAGNOSIS: Colon polyps SURGEON: Giorgi Donato MD INDICATION for procedure: The patient is a 54-year-old man has a family history of colon cancer in his father. His last colonoscopy was 5 years ago and reportedly a small polyp was removed. He has no symptoms. FINDINGS: the terminal ileum is normal. In the transverse colon a 7?10 mm sessile polyp was removed with hot snare technique. Further on in the rectum a small 2-3 mm sessile polyp was removed with cold forceps technique. There was no obvious diverticular disease and no obvious hemorrhoid disease. SURVEILLANCE interval/FOLLOW-UP: Because of the family history, pending pathology results, repeat in 3-5 years. SPECIMENS: yes EBL: Minimal COMPLICATIONS: None QUALITY of prep: Excellent Procedure in detail: The patient gave written consent and was in agreement with the indications, the potential risks as well as the benefits of the procedure. They were taken to the endoscopy suite and laid in the left lateral decubitus position. A timeout was performed and anesthesia was administered which was tolerated well. I started the procedure. Digital rectal and visual examination was performed and grossly within normal limits. A well-lubricated flexible colonoscope was then introduced and passed without any notable difficulty all the way to the cecum identified by the ileocecal valve and the appendiceal orifice. The terminal ileum was intubated and looked normal. The scope was then slowly withdrawn with the above-noted findings. The patient tolerated the procedure well and was taken to the PACU in hemodynamically stable condition.
[2025-01-17 08:44] VITALS: BP 111/82; PULSE 44; RESP 16; TEMP 36.6; O2SAT 100
--- NOTE | 2025-01-17 08:44 | W.PM.DSUDISC ---
Date of service: 01/17/25 Discharge Plan Disposition Patient Disposition: Home Condition: Good Discharge Details Attending Provider: German Donato Primary Care Provider: Rajni Méndez Home Meds and New Rx's Prescriptions: No Action triamcinolone acetonide 0.5 % cream 1 applic topical BID Qty: 30 1RF Rx Instructions: Apply to back of scalp twice daily until resolved and then as needed rosuvastatin 20 mg tablet 20 mg PO DAILY Qty: 90 3RF aspirin [Adult Low Dose Aspirin] 81 mg tablet,delayed release (DR/EC) 81 mg PO DAILY Qty: 90 3RF bisacodyl [Dulcolax (bisacodyl)] 5 mg tablet,delayed release (DR/EC) 5 mg PO ONCE Qty: 4 0RF Rx Instructions: Take per colonoscopy instructions provided by ordering providers office polyethylene glycol 3350 17 gram/dose powder 17 g PO ONCE Qty: 238 0RF Rx Instructions: Take per colonoscopy instructions provided by ordering providers office mupirocin 2 % ointment 1 applic topical TID Qty: 22 2RF Rx Instructions: Apply to scalp for two weeks betamethasone dipropionate 0.05 % cream 1 applic topical DAILY PRN (Reason: skin irritation) Qty: 45 0RF dextroamphetamine-amphetamine [Adderall] 10 mg tablet 10 mg PO BID MDD 20 Qty: 56 0RF sildenafil 50 mg tablet 50 mg PO DAILY Qty: 30 3RF Discharge Instructions Additional Instructions: FINDINGS: A couple of small polyps were found and removed today. They are nothing to worry about. The whole point is getting them removed which we did. This is the reason we do the colonoscopy. You should do another colonoscopy in 3-5 years. We will call you in a week or 2 after we get the pathology results back to decide. Discharge Orders Discharge Orders: Discharge Order (Routine); Ordered 01/17/25 Ordered By: German Donato
--- NOTE | 2025-01-17 08:56 | W.ANESPOSTOP ---
Postoperative Evaluation Date, Time and Location Date Performed: 01/17/25 Time Performed: 08:45 Patient Location: Day Surgery Unit Vital Signs Most Recent Imported Vital Signs: Most Recent Vital Signs Temp Pulse Resp BP Pulse Ox 36.6 C 44 L 16 111/82 100 01/17/25 08:44 01/17/25 08:44 01/17/25 08:44 01/17/25 08:44 01/17/25 08:44 Pain Score Most Recent Pain Score: Most Recent Pain Score Pain Level 0 01/17/25 08:44 Assessment Mental Status: Awake (Alert & Oriented to Patient Baseline) Airway and Respiratory Function: Patent airway with normal (patient baseline) respiratory exam Cardiovascular Function: Hemodynamically Stable Hydration Status: Adequately Hydrated Nausea & Vomiting: No Nausea or Vomiting Pain: Pt. Denies Any Pain Peripheral Nerve Block: Patient did not receive a nerve block
== END 2025-01-17 09:05 | disposition home or self-care (01) ==
PROVIDERS: PCP Nurse Practitioner Family; Visit Provider Student in an Organized Health Care Education/Training Program
PROC: 0DJD8ZZ Inspection of Lower Intestinal Tract, Via Natural or Artificial Opening Endoscopic (ICD-10-PCS; CPT 45378; principal; 2025-01-17 07:30)
DX: Z12.11 Encounter for screening for malignant neoplasm of colon (principal); I25.10 Atherosclerotic heart disease of native coronary artery without angina pectoris; K63.5 Polyp of colon; Z80.0 Family history of malignant neoplasm of digestive organs; D12.8 Benign neoplasm of rectum; K63.89 Other specified diseases of intestine
CPT/HCPCS: 45385; 45380; 88305; J2704

== ENCOUNTER 2025-03-13 03:36 | Outpatient (CLI) | payer OTHER, SELFPAY ==
[2025-03-13 12:32] LABS: ALT 48 U/L (16-63); AST 36 U/L (15-37); Albumin 4.1 g/dL (3.4-5.0); Alkaline Phosphatase 76 U/L (46-116); Anion Gap 5.4 mmol/L (3-11); BUN 15 mg/dL (7-18); Bilirubin, Total 0.5 mg/dL (0.2-1.0); CO2 29.6 mmol/L (21.0-32.0); Calcium 9.5 mg/dL (8.5-10.1); Chloride 108 mmol/L (98-107); Cholesterol 157 mg/dL (<200); Glucose 94 mg/dL (74-106); HDL Cholesterol 94 mg/dL (>or=40); Potassium 4.5 mmol/L (3.5-5.1); Sodium 143 mmol/L (136-145); Total Protein 7.4 g/dL (6.4-8.2)
[2025-03-13 12:33] LABS: Triglyceride <25 mg/dL (<150)
[2025-03-13 12:44] LABS: LDL CHOLESTEROL 56 mg/dL (<100)
== END 2025-03-13 03:37 | disposition home or self-care (01) ==
LOC: LOS 03:36
PROVIDERS: PCP Nurse Practitioner Family; Visit Provider Nurse Practitioner Family
DX: Z00.00 Encounter for general adult medical examination without abnormal findings (principal); F98.8 Other specified behavioral and emotional disorders with onset usually occurring in childhood and adolescence; M54.41 Lumbago with sciatica, right side; R21 Rash and other nonspecific skin eruption; Z20.2 Contact with and (suspected) exposure to infections with a predominantly sexual mode of transmission; H92.02 Otalgia, left ear
CPT/HCPCS: 36415; 80053; 80061; 83721

== ENCOUNTER 2025-06-05 12:42 | Outpatient (CLI) | payer OTHER, SELFPAY ==
--- NOTE | 2025-06-05 11:49 | DI.RAD_ITS ---
Exam(s) XR ANKLE RT COMPLETE EXAM: XR ANKLE RT COMPLETE CLINICAL HISTORY: S99.911A,S63.602A, right ankle injury, lt thumb sprain. TECHNIQUE: 2D digital imaging was performed. COMPARISON: No exams were available for comparison FINDINGS: 3 views There is soft tissue swelling laterallyh but no evidence of obvious fracture or widening of the ankle mortise. Talar dome appears unremarkable. There is a small calcific density subjacent to the medial malleolus. Probably an accessory ossicle. Some vascular calcification is noted IMPRESSION: Soft tissue swelling laterally. No obvious acute fractures. DATA REPOSITORY: RADIATION DOSE DELIVERED:
--- NOTE | 2025-06-05 11:55 | DI.RAD_ITS ---
Exam(s) XR THUMB LT EXAM: XR THUMB LT CLINICAL HISTORY: S99.911A,S63.602A,left thumb injury, lt thumb sprain, right ankle injury. TECHNIQUE: 2D digital imaging was performed. COMPARISON: No exams were available for comparison FINDINGS: 3 views No evidence of fracture nor dislocation or abnormal soft tissue densities. No radiopaque foreign bodies. No osseous lesions nor erosions. No obvious degenerative changes. IMPRESSION: No acute osseous findings. DATA REPOSITORY: RADIATION DOSE DELIVERED:
== END 2025-06-05 13:02 ==
LOC: DI 12:42
PROVIDERS: PCP Nurse Practitioner Family; Visit Provider Physician Assistant
DX: S63.602A Unspecified sprain of left thumb, initial encounter (principal); S99.911A Unspecified injury of right ankle, initial encounter; X58.XXXA Exposure to other specified factors, initial encounter
CPT/HCPCS: 73140; 73610

== ENCOUNTER 2025-07-21 00:33 | Outpatient (CLI) | payer OTHER, SELFPAY ==
--- NOTE | 2025-07-21 | DI.MRI_ITS ---
Exam(s) MR BRAIN WO/W EXAM: MR BRAIN WO/W CLINICAL HISTORY: Left lancinating facial/ear pain, R51.9, H92.02 TECHNIQUE: Multiplanar multisequence MRI of the brain was performed. Both noninfused and contrast infused sequences were performed. IV Contrast injected was 17 cc Dotarem COMPARISON: No exams were available for comparison FINDINGS: CEREBRAL PARENCHYMA: No evidence of acute intracranial hemorrhage, mass effect nor shift of midline structure. No extraaxial fluid collections. Ventricles are not enlarged nor shifted. There is no abnormal signal abnormality in the periventricular white matter. DWI: No areas of restricted diffusion to suggest acute ischemic event. SWI: There is susceptibility artifact evident in the inferior aspect of the left cerebellar hemisphere concerning for prior microhemorrhage at this level. No obvious vascular malformations seen at this level. This focus is low intensity on T2 images and centrally low intensity on T1. There are no findings in the opposite-right cerebellar hemisphere nor within the terri and midbrain and thalami. No abnormal signal in the periventricular white matter. No evidence of demyelinating disease. There are no ring enhancing lesions in the brain. There is no abnormal meningeal enhancement. PITUITARY GLAND: No mass nor parasellar abnormality. No obvious abnormality in the cavernous sinuses. FLOW VOIDS: The expected flow void are noted. No evidence of obvious aneurysm nor obvious vascular malformation. PARANASAL SINUSES: The visualized paranasal sinuses appear unremarkable. ORBITS: No obvious abnormal findings. IMPRESSION: 1. There is a small focus of signal abnormality in left cerebellar hemisphere as described above consistent with area of prior microhemorrhage. DATA REPOSITORY:
[2025-07-21] MEDS: Gadoterate meglumine 20 ML SYRINGE IVP (11:30)
[2025-07-21] MEDS: Normal Saline Flush 10 ML SYR IVP (11:31)
== END 2025-07-21 00:53 ==
LOC: DI 00:33
PROVIDERS: PCP Nurse Practitioner Family; Visit Provider Otolaryngology
DX: R51.9 Headache, unspecified (principal); H92.02 Otalgia, left ear; R93.0 Abnormal findings on diagnostic imaging of skull and head, not elsewhere classified
CPT/HCPCS: 70553